=== PATIENT | female | born 1965 | race Caucasian/White ===

== ENCOUNTER 2023-01-01 09:30 | Emergency (ER) | payer OTHER ==
[~2023-01-01] VITALS: Ht 172.7 cm; Wt 59.9 kg
[2023-01-01] MEDS ORDERED: LORAZEPAM INJ 2 MG/ML VIAL IV ONE (10:00)
[2023-01-01] MEDS ORDERED: ONDANSETRON HCL/PF 4 MG/2 ML VIAL IV ONE (10:00)
[2023-01-01] MEDS ORDERED: IV NS 0.9% 1,000 ML IV ONE ×2 (10:00→11:00)
--- NOTE | 2023-01-01 10:10 | NUR ---
PATIENT ARRIVED C/C ABD PAIN, NAUSEA, ANXIETY D/T ETOH WITHDRAWAL. A/O X 3
[2023-01-01] MEDS ORDERED: ONDANSETRON HCL/PF 4 MG/2 ML VIAL ONE (10:15)
[2023-01-01] MEDS ORDERED: LORAZEPAM 1 MG TABLET ONE (10:15)
[2023-01-01] MEDS ORDERED: LORAZEPAM INJ 2 MG/ML VIAL ONE (10:17)
[2023-01-01 10:26] LABS: BASOPHILS % (AUTO) 0.5 % (0.0-2.0); EOSINOPHILS % (AUTO) 0.1 % (0.0-6.0); HEMATOCRIT 41 % (33-45); HEMOGLOBIN 13.6 g/dL (11.5-14.8); LYMPHOCYTES # (AUTO) 0.5 K/uL (0.8-4.8); LYMPHOCYTES % (AUTO) 7.7 % (20.0-44.0); MEAN CORPUSCULAR HGB CONC 33 g/dl (31.0-36.0); MEAN CORPUSCULAR VOLUME 99 fL (82-100); MONOCYTES # (AUTO) 0.8 K/uL (0.1-1.30); MONOCYTES % (AUTO) 11.9 % (2.0-12.0); NEUTROPHILS # (AUTO) 5.6 K/uL (1.8-8.9); NEUTROPHILS % (AUTO) 79.8 % (43.0-81.0); PLATELET COUNT (AUTO) 119 K/uL (150-450)
--- NOTE | 2023-01-01 10:30 | NUR ---
BLOOD SAMPLES OBTAINED
[2023-01-01 10:34] LABS: CALCIUM, SERUM 11.3 mg/dL (8.5-10.1); CREATININE 0.9 mg/dL (0.6-1.3); POTASSIUM 3.5 mmol/L (3.5-5.1)
--- NOTE | 2023-01-01 10:39 | NUR ---
COVID SWAB OBTAINED
[2023-01-01 10:40] LABS: ALBUMIN 4.4 g/dL (3.4-5.0); BILIRUBIN,DIRECT 0.4 mg/dL (0.0-0.2); BILIRUBIN,TOTAL 1.6 mg/dL (0.2-1.0); TOTAL PROTEIN, SERUM 9.4 g/dL (6.4-8.2)
[2023-01-01] MEDS ORDERED: LIDOCAINE VISCOUS 2% UD 15 ML UDC MM ONE (11:00)
[2023-01-01] MEDS ORDERED: MAG HYDROX/AL HYDROX/SIMETH 30 ML UDC PO ONE (11:00)
[2023-01-01] MEDS ORDERED: LIDOCAINE VISCOUS 2% UD 15 ML UDC ONE (11:24)
[2023-01-01] MEDS ORDERED: MAG HYDROX/AL HYDROX/SIMETH 30 ML UDC ONE (11:24)
--- NOTE | 2023-01-01 11:46 | NUR ---
URINE SAMPLE OBTAINED
[2023-01-01 12:51] LABS: BILIRUBIN,URINE 2+ (NEGATIVE); COLOR,URINE YELLOW (YELLOW); LEUKOCYTE ESTERASE ,URINE NEGATIVE (NEGATIVE); NITRITE, URINE NEGATIVE (NEGATIVE); PH,URINE 8.5 (5.0-8.0); PROTEIN,URINE TRACE mg/dl (NEGATIVE); UGLUCOSE NEGATIVE (NEGATIVE); UROBILINOGEN,URINE 0.2 EU/dL (0.2)
[2023-01-01 13:14] LABS: BACTERIA,URINE Moderate /HPF (None Seen); RBC,URINE 0-2 /HPF (0-2); SQUAMOUS EPITHELIAL CELL,UR Moderate /HPF (None Seen); URINE AMORPHOUS URATE Moderate /HPF (None Seen); WBC,URINE NONE SEEN /HPF (0-3)
[2023-01-01] MEDS ORDERED: CHLO25CA22 PO (13:30)
[2023-01-01] MEDS ORDERED: ONDA4TAB11 PO ×2 (13:32→19:56)
[2023-01-01] MEDS ORDERED: KETOROLAC TROMETHAMINE INJ 30 MG/ML VIAL IV ONE (14:30)
[2023-01-01 15:00] LABS: ACETAMINOPHEN < 10 ug/ml (10-30)
[2023-01-01] MEDS ORDERED: KETOROLAC TROMETHAMINE 15 MG/ML VIAL ONE (15:20)
--- NOTE | 2023-01-01 18:00 | NUR ---
Patient with severe difficulty ambulating due to EtOH withdrawal. Vital signs stable. MD informed @ 1400. Will continue to monitor.
--- NOTE | 2023-01-01 19:47 | NUR ---
PT IS ALERT AND ORIENTED. RR EVEN AND NON LABORED. EXPLAINED PLAN OF CARE. SHE AGREED TO TOBACCO BLENDER PRESCRIBED MEDS.
--- NOTE | 2023-01-01 19:56 | NUR ---
Patient discharged to home in stable condition. Written and verbal after care instructions given. Patient verbalizes understanding of instruction.
--- NOTE | 2023-01-01 19:56 | NUR ---
IV removed. Catheter intact and site benign. Pressure and 4x4 applied to site. No bleeding noted.
[2023-01-01 19:57] VITALS: BP 145/82
--- NOTE | 2023-01-02 10:26 | NUR ---
Lorazepam 1 mg wasted 01/01/23 @ 1026 as witnessed by YAS Tran
== END 2023-01-01 19:57 | disposition home or self-care (01) ==
LOC: ER 09:33
DX: R10.9 Unspecified abdominal pain (principal); R44.0 Auditory hallucinations; F10.139 Alcohol abuse with withdrawal, unspecified; Y90.0 Blood alcohol level of less than 20 mg/100 ml; Z88.2 Allergy status to sulfonamides; Z79.899 Other long term (current) drug therapy; Z20.822 Contact with and (suspected) exposure to COVID-19
CPT/HCPCS: 99285; 96374; 96361; 96375; 93005; 74176; 85025; 80048; 87086; 83690; 80076; 81001; 36415; 87426; 80143; 80320; 80307; J2060; J2405; J7030 ×2; J1885; C9803; G0480

== ENCOUNTER 2023-01-02 00:13 | Emergency (ER) | payer OTHER ==
[~2023-01-02 00:13] MED LIST: CHLO25CA22 PO; ONDA4TAB11 PO
--- NOTE | 2023-01-02 02:12 | NUR ---
CALLED PT FOR TRIAGE. NO ANSWER
--- NOTE | 2023-01-02 02:29 | NUR ---
CALLED TO [facility] STILL NO ANSWER, NOT IN WAITING ROOM
== END 2023-01-02 02:32 | disposition left against medical advice (07) ==
LOC: ER 00:17
DX: Z53.21 Procedure and treatment not carried out due to patient leaving prior to being seen by health care provider (principal)